=== PATIENT | male | born 1975 ===

== ENCOUNTER → 2017-06-05 | Outpatient (CLI) | payer BC ==
[2017-06-05 17:55] LABS: BASO % 0.5 %; BASO ABS # 0.04 K/uL (0-0.2); COMPLETE YES; EOS % 3.6 %; HEMATOCRIT 43.7 % (42-52); IG% 0.2 %; LYMPH ABS # 2.83 K/uL (1.2-3.4); MEAN CELL VOLUME 88.1 fL (80-100); MEAN CORPUSCULAR HEMOGLOBIN 29.2 pg (25-34); MEAN CORPUSCULAR HGB CONC 33.2 g/dl (32-36); MEAN PLATELET VOLUME 9.3 fL (7.4-10.4); MONO % 9.3 %; NEUT % 51.4 %; PLATELET COUNT 291 K/uL (130-400); RED BLOOD COUNT 4.96 M/uL (4.7-6.1); WHITE BLOOD COUNT 8.09 K/uL (4.8-10.8)
[2017-06-05 18:15] LABS: BLOOD UREA NITROGEN 27 mg/dl (7-18); BUN/CREATININE RATIO 28.2 (10-20); CALCIUM 8.8 mg/dl (8.5-10.1); CARBON DIOXIDE 27 mmol/L (21-32); CHLORIDE 105 mmol/L (98-107); CREATININE 0.97 mg/dl (0.60-1.40); GLUCOSE 91 mg/dl (70-99); PHOSPHORUS 3.5 mg/dl (2.5-4.9); POTASSIUM 3.8 mmol/L (3.5-5.1); SODIUM 137 mmol/L (136-145)
== END | disposition home or self-care (01) ==
LOC: C.LABMFLN 16:17
PROVIDERS: ATTEND Family Medicine
DX: K62.5 Hemorrhage of anus and rectum (principal)